=== PATIENT | male | born 1970 | race Caucasian/White ===

== ENCOUNTER 2019-03-15 18:14 | Emergency (ER) | payer BC ==
[~2019-03-15] VITALS: Ht 175.3 cm; Wt 77.1 kg
[~2019-03-15 18:14] MED LIST: NOHOMEMEDICATIONS; NORCO 5-325 TA1 EACH PO; TAMSULOSIN HCL0.4 M1 PO; ZOFRAN4 MG PO
[2019-03-15 18:16] VITALS: BP 128/93
[2019-03-15] MEDS ORDERED: NORCO 5-325 TA1 EAC1 PO (18:33)
== END 2019-03-15 19:35 | disposition home or self-care (01) ==
LOC: M.ERS 18:14
DX: T22.112A Burn of first degree of left forearm, initial encounter (principal); T20.17XA Burn of first degree of neck, initial encounter; T24.102A Burn of first degree of unspecified site of left lower limb, except ankle and foot, initial encounter; Z87.442 Personal history of urinary calculi; Z87.891 Personal history of nicotine dependence; X08.8XXA Exposure to other specified smoke, fire and flames, initial encounter; Y93.89 Activity, other specified; Y92.89 Other specified places as the place of occurrence of the external cause; Y99.8 Other external cause status